=== PATIENT | male | born 1950 | race Caucasian/White ===

== ENCOUNTER 2022-05-15 05:36 | Inpatient (IN) | payer MEDICARE, OTHER ==
[2022-05-15 06:22] LABS: #Eosinphils 0.1 thou/uL (0.0-0.7); #Lymphocytes 0.7 thou/uL (1.20-3.40); #Neutrophils 9.1 thou/uL (1.40-6.50); %Basophils 0.4 % (0.0-1.0); %Eosinophils 0.7 % (0.0-10.0); %Lymphocytes 6.6 % (21.0-51.0); %Neutrophils 83.3 % (42.0-75.0); Hemoglobin 14.2 g/dL (14.0-18.0); Mean Corpuscular HGB CONC 32.4 g/dL (32.0-36.0); Mean Corpuscular Hemoglobin 31.2 pg (27.0-31.0); Mean Corpuscular Volume 96.4 fl (78.0-98.0); Mean Platelet Volume 7.8 fL (7.4-10.4); Platelet Count 202 10x3/uL (130-400); RBC Distribution Width 11.9 % (11.5-14.5); Red Blood Cell (RBC) Count 4.55 mill/uL (4.70-6.10); White Blood Cell (WBC) Count 10.9 10x3/uL (4.8-10.8)
[2022-05-15 06:41] LABS: Digoxin 0.21 ng/mL (0.8-2.0)
[2022-05-15 06:42] LABS: ALT (SGPT) 15 U/L (8-55); AST (SGOT) 19 U/L (5-34); Albumin 3.8 g/dL (3.4-4.8); Alkaline Phosphatase 71 U/L (40-110); Anion Gap 12 mmol/L (10-20); BUN (Urea Nitrogen) 12 mg/dL (8.4-25.7); Bilirubin, Total 0.7 mg/dL (0.2-1.2); Calc. Creatinine Clearance 0 mL/min (70-130); Calcium 8.9 mg/dL (7.8-10.44); Carbon Dioxide 25 mmol/L (23-31); Chloride 105 mmol/L (98-107); Estimated GFR 90; Globulin 1.9 g/dL (2.4-3.5); Glucose 111 mg/dL (80-115); Potassium 4.7 mmol/L (3.5-5.1); Protein, Total 5.7 g/dL (5.8-8.1); Sodium 137 mmol/L (136-145)
[2022-05-15] MEDS ORDERED: Nitroglycerin 0.4 MG TAB (25 Tab Bottle) SL PRN (08:12)
[2022-05-15] MEDS ORDERED: Acetaminophen 325 MG TAB PO PRN (08:12)
[2022-05-15] MEDS: Aspirin 81 mg Enteric Coated Tablet PO SCH (09:34)
[2022-05-15] MEDS: Digoxin 0.125 MG TAB PO SCH (09:34)
[2022-05-15] MEDS: Famotidine 20 MG TAB PO SCH ×2 (09:34→21:57)
[2022-05-15 10:02] LABS: Troponin I Less than 0.010 ng/mL (< 0.028)
[2022-05-15 12:26] LABS: SARS-CoV-2 NAA Rapid Test Not Detected (NotDetected)
[2022-05-15] MEDS: Pyridostigmine Bromide IR 60 MG TAB PO SCH ×3 (13:12→21:58)
[2022-05-15] MEDS ORDERED: Digoxin 0.125 MG TAB ONE (13:49)
[2022-05-15] MEDS ORDERED: Famotidine 20 MG TAB ONE (13:50)
[2022-05-15] MEDS ORDERED: Aspirin 81 mg Enteric Coated Tablet ONE (13:50)
[2022-05-15 18:46] VITALS: BMI 32.8
[2022-05-15] MEDS ORDERED: Atorvastatin Calcium 10 MG TAB PO SCH (21:00)
[2022-05-15] MEDS: Mycophenolate 250 MG CAP PO SCH (21:57)
[2022-05-15] MEDS: Tamsulosin HCl 0.4 MG CAP PO SCH (21:58)
[2022-05-16] MEDS: Furosemide 40 MG TAB PO SCH ×2 (08:28→15:02)
[2022-05-16] MEDS: Potassium Chloride 10 MEQ TAB PO SCH ×2 (08:29→15:02)
[2022-05-16] MEDS: Pyridostigmine Bromide IR 60 MG TAB PO SCH ×4 (08:57→21:08)
[2022-05-16] MEDS: Atorvastatin Calcium 10 MG TAB PO SCH (08:57)
[2022-05-16] MEDS: Aspirin 81 mg Enteric Coated Tablet PO SCH (08:57)
[2022-05-16] MEDS: Famotidine 20 MG TAB PO SCH ×2 (08:57→21:07)
[2022-05-16] MEDS: Mycophenolate 250 MG CAP PO SCH ×2 (08:57→21:07)
[2022-05-16] MEDS: Digoxin 0.125 MG TAB PO SCH (11:57)
[2022-05-16] MEDS ORDERED: Regadenoson 0.4 MG/5 ML SYRINGE ONE (13:58)
[2022-05-16] MEDS ORDERED: Communication Order-Pharmacy FS SCH (18:30)
[2022-05-16] MEDS ORDERED: Digoxin 0.25 MG TAB PO SCH (18:30)
[2022-05-16] MEDS: Tamsulosin HCl 0.4 MG CAP PO SCH (21:08)
[2022-05-17 05:48] LABS: Cardiac Risk 2.3 (Less than 4.5)
[2022-05-17] MEDS ORDERED: Sodium Chloride 0.9% 1,000 ML IV SCH ×2 (06:00→09:14)
[2022-05-17] MEDS: Atorvastatin Calcium 10 MG TAB PO SCH (06:16)
[2022-05-17] MEDS: Aspirin 81 mg Enteric Coated Tablet PO SCH (06:16)
[2022-05-17] MEDS: Digoxin 0.125 MG TAB PO SCH (06:16)
[2022-05-17] MEDS: Famotidine 20 MG TAB PO SCH (06:17)
[2022-05-17] MEDS: Mycophenolate 250 MG CAP PO SCH (06:17)
[2022-05-17] MEDS: Pyridostigmine Bromide IR 60 MG TAB PO SCH ×2 (06:18→14:03)
[2022-05-17] MEDS ORDERED: Lidocaine 1% (PF) 30 ML VIAL ONE (07:50)
[2022-05-17] MEDS ORDERED: Heparin 10,000 UNITS/ 10 ML VIAL ONE (07:50)
[2022-05-17] MEDS ORDERED: FENTANYL 50 MCG/ML 1 ML VIAL ONE (08:18)
[2022-05-17] MEDS ORDERED: Midazolam HCl 2 mg/2 ml Vial ONE (08:18)
[2022-05-17] MEDS ORDERED: Protamine Sulfate 50 MG/5 ML VIAL ONE (08:19)
[2022-05-17] MEDS ORDERED: Acetaminophen/Codeine 30-300mg Tablet PO PRN ×2 (09:14)
[2022-05-17] MEDS ORDERED: Sodium Chloride 0.9% 200 ML IV PRN (09:14)
[2022-05-17] MEDS ORDERED: Nitroglycerin 0.4 MG TAB (25 Tab Bottle) SL PRN (09:14)
[2022-05-17] MEDS: Potassium Chloride 10 MEQ TAB PO SCH (10:02)
[2022-05-17] MEDS: Furosemide 40 MG TAB PO SCH (10:02)
[2022-05-17 15:46] VITALS: BP 114/56; TEMP 98.7
== END 2022-05-17 16:03 | disposition home or self-care (01) | DRG 287 ==
LOC: ERS 05:36 → ERHOLD 08:44 → 2SW 17:44 → OBSVTOIN 05-16 14:41
PROVIDERS: ADMIT Internal Medicine; ATTEND Internal Medicine
PROC: 4A023N7 Measurement of Cardiac Sampling and Pressure, Left Heart, Percutaneous Approach (ICD-10-PCS; principal; 2022-05-17)
PROC: B2111ZZ Fluoroscopy of Multiple Coronary Arteries using Low Osmolar Contrast (ICD-10-PCS; 2022-05-17)
PROC: B2151ZZ Fluoroscopy of Left Heart using Low Osmolar Contrast (ICD-10-PCS; 2022-05-17)
DX: R07.89 Other chest pain (principal); I47.1 Supraventricular tachycardia; E78.5 Hyperlipidemia, unspecified; G70.00 Myasthenia gravis without (acute) exacerbation; I25.10 Atherosclerotic heart disease of native coronary artery without angina pectoris; Z20.822 Contact with and (suspected) exposure to COVID-19; N40.0 Benign prostatic hyperplasia without lower urinary tract symptoms; I48.0 Paroxysmal atrial fibrillation; N18.2 Chronic kidney disease, stage 2 (mild); E66.9 Obesity, unspecified; Z68.32 Body mass index [BMI] 32.0-32.9, adult; Z88.0 Allergy status to penicillin; Z79.82 Long term (current) use of aspirin; Z79.899 Other long term (current) drug therapy; Z79.01 Long term (current) use of anticoagulants
CPT/HCPCS: 36415; 71045; 78452; 80053; 80061; 80162; 84484; 85025; 85347; 85379; 93005; 93017; 93458; 94760; 99152; 99153; A9500; C1769; G0378; J1644; J2001; J2250; J2720; J2785; J3010; J7050; J7517; U0002

== ENCOUNTER 2025-01-29 12:30 | Outpatient (CLI) | payer MEDICARE, OTHER | END 2025-01-29 12:31 | disposition home or self-care (01) | LOC: PET 12:30 | PROVIDERS: ATTEND Radiology Radiation Oncology | DX: C61 Malignant neoplasm of prostate (principal) | CPT/HCPCS: 78815; A9595 ==